=== PATIENT | female | born 1985 | race Caucasian/White ===

== ENCOUNTER 2018-06-07 16:22 | Emergency (ER) | payer OTHER ==
[2018-06-07 16:30] VITALS: BMI 25.7
[2018-06-07] MEDS ORDERED: ONDANSETRON 8 MG TABLET (FP) PO ONE (17:12)
[2018-06-07] MEDS ORDERED: MAG HYDROX/AL HYDROX/SIMETH 30 ML UNIT-DOSE CUP PO ONE (17:13)
[2018-06-07] MEDS ORDERED: MAG HYDROX/AL HYDROX/SIMETH 30 ML UNIT-DOSE CUP ONE (17:20)
[2018-06-07] MEDS ORDERED: ONDANSETRON 4 MG TABLET PO ONE ×2 (17:20→17:22)
[2018-06-07 17:35] LABS: URINE APPEARANCE CLEAR; URINE BILIRUBIN NEGATIVE (<2.0 mg/dL); URINE COLOR YELLOW; URINE GLUCOSE (UA) NEGATIVE (NEGATIVE); URINE KETONE NEGATIVE (NEGATIVE); URINE LEUK ESTERASE NEGATIVE (NEGATIVE); URINE NITRITE NEGATIVE (NEGATIVE); URINE PROTEIN NEGATIVE (NEGATIVE); URINE UROBILINOGEN NEGATIVE mg/dL (0.2-1.0)
[2018-06-07 17:41] LABS: HCG,QUALITATIVE URINE Negative
[2018-06-07] MEDS ORDERED: RANITIDINE HCL 150 MG TABLET (FP) ONE (17:49)
--- NOTE | 2018-06-07 18:03 | PDOC ---
History of Present Illness - General Chief Complaint: Cold Symptoms Stated Complaint: COLD SYMPTOMS Time Seen by Provider: 06/07/18 16:54 History Source: Patient Exam Limitations: No Limitations - History of Present Illness Initial Comments: 06/07/18 17:53 32 yo F w/ no sig PMHx comes in c/o 6 days of diffuse abdominal discomfort, with nausea, fever intermittently up to 103, dry cough with chest pain when she coughs, sore throat, nasal congestion, generalized malaise, (+)multiple episodes of NBNB vomiting yesterday and today, multiple episodes of NB diarrhea , no back pain, no burning/pain on urination, no vaginal symptoms. No known sick contacts, no recent travel. 06/07/18 19:30 Past History - Past Medical History Allergies/Adverse Reactions: Allergies Allergy/AdvReac Type Severity Reaction Status Date / Time No Known Allergies Allergy Verified 11/24/14 07:37 Home Medications: Ambulatory Orders Docusate Sodium [Colace -] 100 mg PO TID #21 capsule 11/29/14 oxyCODONE HCL [Roxicodone -] 5 mg PO Q6H PRN #14 tablet 11/29/14 CVA: No COPD: No CHF: No - Immunization History Immunization Up to Date: Yes - Suicide/Smoking/Psychosocial Hx Smoking History: Never smoked Have you smoked in the past 12 months: No Number of Cigarettes Smoked Daily: 0 Information on smoking cessation initiated: No Hx Alcohol Use: No Drug/Substance Use Hx: No Substance Use Type: None Review of Systems - Review of Systems Able to Perform ROS?: Yes Constitutional: Yes: Fever, Malaise. No: Chills, Night Sweats HEENTM: Yes: Throat Pain. No: Eye Pain, Recent change in vision Respiratory: Yes: Cough. No: Shortness of Breath Cardiac (ROS): Yes: Chest Pain. No: Palpitations, Chest Tightness ABD/GI: Yes: Diarrhea, Nausea, Vomiting, Abdominal cramping : No: Dysuria, Hematuria Musculoskeletal: No: Back Pain Integumentary: No: Rash Neurological: No: Headache, Numbness, Dizziness Psychiatric: Yes: Change in Appetite Endocrine: No: Unexplained Weight Loss *Physical Exam - Vital Signs Last Vital Signs Temp Pulse Resp BP Pulse Ox 99.9 F H 85 16 99/58 L 100 06/07/18 16:28 06/07/18 16:28 06/07/18 16:28 06/07/18 16:28 06/07/18 16:28 - Physical Exam General Appearance: Yes: Nourished. No: Apparent Distress HEENT: positive: KAVON, Normal Voice, Rhinorrhea, Other (nasal congestion, (+) clear effusion behind TMs bilaterally). negative: Pale Conjunctivae, Scleral Icterus (R), Scleral Icterus (L), Muffled/Hoarse voice, Tonsillar Erythema, TM Bulging, TM Dull Neck: positive: Supple, Lymphadenopathy (R) (mild), Lymphadenopathy (L) (mild). negative: Decreased range of motion, Tender midline Respiratory/Chest: positive: Lungs Clear, Normal Breath Sounds. negative: Respiratory Distress, Accessory Muscle Use Cardiovascular: positive: Regular Rhythm, Regular Rate Gastrointestinal/Abdominal: positive: Normal Bowel Sounds, Tender (DIffuse non focal tenderness mostly in epigastric area, (-)McBurney's tenderness, (-) Rosving sign, (-)psoas sign, (-)pelayo's sign), Soft Musculoskeletal: positive: Normal Inspection. negative: CVA Tenderness, Decreased Range of Motion Extremity: positive: Normal Capillary Refill, Normal Inspection, Normal Range of Motion. negative: Tender, Pedal Edema Integumentary: positive: Normal Color, Dry. negative: Jaundice, Rash Neurologic: positive: Fully Oriented, Alert, Normal Mood/Affect Moderate Sedation - Procedure Monitoring Vital Signs: Procedure Monitoring Vital Signs Temperature 99.9 F H 06/07/18 16:28 Pulse Rate 85 06/07/18 16:28 Respiratory Rate 16 06/07/18 16:28 Blood Pressure 99/58 L 06/07/18 16:28 O2 Sat by Pulse Oximetry (%) 100 06/07/18 16:28 ED Treatment Course - ADDITIONAL ORDERS Additional order review: Laboratory Results 06/07/18 17:06 Urine Color Yellow Urine Appearance Clear Urine pH 6.0 Ur Specific [place] 1.021 Urine Protein Negative Urine Glucose (UA) Negative Urine Ketones Negative Urine Blood Negative Urine Nitrite Negative Urine Bilirubin Negative Urine Urobilinogen Negative Ur Leukocyte Esterase Negative Urine HCG, Qual Negative - Medications Given in the ED: ED Medications Discontinued Medications Generic Name Dose Route Start Last Admin Trade Name Freq PRN Reason Stop Dose Admin Al Hydroxide/Mg Hydroxide 30 ml 06/07/18 17:13 06/07/18 17:24 Mylanta Oral Suspension - PO 06/07/18 17:14 30 ml ONCE ONE Administration Ondansetron HCl 8 mg 06/07/18 17:12 06/07/18 17:24 Zofran - PO 06/07/18 17:13 8 mg ONCE ONE Administration Medical Decision Making - Medical Decision Making 06/07/18 17:34 32 yo F w/ flu like symptoms. WIll test for Flu only for diagnostic purposes because pt has had symptoms for 6 days. Marvin also check for Strep and will do a CXR due to CP associated with cough and will reasess. WIll give zofran, zantac, maalox and reassess 06/07/18 19:35 Pt not better after zantac, zofran, maalox, she vomited again in the bathroom. WIll line and lab, give IV fluids and reassess. Change of shift, care of patient signed over to RAS Barriga who will reassess patient, order labs and decide on dispo plan *DC/Admit/Observation/Transfer Diagnosis at time of Disposition: Flu-like symptoms Abdominal pain Qualifiers: Abdominal location: generalized Qualified Code(s): R10.84 - Generalized abdominal pain - Referrals Referrals: Jc Ledbetter MD [Primary Care Provider] - - Patient Instructions - Post Discharge Activity
[2018-06-07] MEDS ORDERED: SODIUM CHLORIDE 1,000 ML IV STA (19:10)
[2018-06-07] MEDS ORDERED: ONDANSETRON 4 MG/2 ML VIAL IVPUSH ONE (19:10)
--- NOTE | 2018-06-07 20:19 | PDOC ---
*Physical Exam - Vital Signs Last Vital Signs Temp Pulse Resp BP Pulse Ox 99.9 F H 85 16 99/58 L 100 06/07/18 16:28 06/07/18 16:28 06/07/18 16:28 06/07/18 16:28 06/07/18 16:28 ED Treatment Course - LABORATORY CBC & Chemistry Diagram: 06/07/18 21:10 06/07/18 21:10 - ADDITIONAL ORDERS Additional order review: Laboratory Results 06/07/18 17:06 Urine Color Yellow Urine Appearance Clear Urine pH 6.0 Ur Specific [place] 1.021 Urine Protein Negative Urine Glucose (UA) Negative Urine Ketones Negative Urine Blood Negative Urine Nitrite Negative Urine Bilirubin Negative Urine Urobilinogen Negative Ur Leukocyte Esterase Negative Urine HCG, Qual Negative - Medications Given in the ED: ED Medications Discontinued Medications Generic Name Dose Route Start Last Admin Trade Name Indra PRN Reason Stop Dose Admin Al Hydroxide/Mg Hydroxide 30 ml 06/07/18 17:13 06/07/18 17:24 Mylanta Oral Suspension - PO 06/07/18 17:14 30 ml ONCE ONE Administration Ondansetron HCl 8 mg 06/07/18 17:12 06/07/18 17:24 Zofran - PO 06/07/18 17:13 8 mg ONCE ONE Administration *DC/Admit/Observation/Transfer Diagnosis at time of Disposition: Flu-like symptoms Abdominal pain Qualifiers: Abdominal location: generalized Qualified Code(s): R10.84 - Generalized abdominal pain - Discharge Dispostion Disposition: HOME Condition at time of disposition: Stable Decision to Admit order: No - Referrals Referrals: Jc Ledbetter MD [Primary Care Provider] - - Patient Instructions Printed Discharge Instructions: DI for Viral Upper Respiratory Infection -- Adult Additional Instructions: You have flu like symptoms. Your ultrasound today shows no acute problems Please take zofran every 8 hours as needed for nausea and vomiting Drink plenty of fluids and eat a bland diet Take motrin as needed for pain or fever every 6 hours. Follow up with your primary care doctor in 24-72 hours Return to the ED for worsening abdominal pain, fever, or if you have any new or worsening symptoms - Post Discharge Activity Forms/Work/School Notes: Back to Work
[2018-06-07] MEDS ORDERED: ONDANSETRON 4 MG/2 ML VIAL ONE (21:26)
[2018-06-07 21:31] LABS: BASO % 0.3 % (0-2.0); HEMATOCRIT 33.8 % (32.4-45.2); HEMOGLOBIN 11.4 GM/dL (10.7-15.3); LYMPH % 17.1 % (8-40); MCH 32.8 pg (25.7-33.7); MCHC 33.8 g/dl (32.0-36.0); MEAN CELL VOLUME 97.1 fl (80-96); MEAN PLT VOLUME 8.1 fl (7.5-11.1); MONO % 7.7 % (3.8-10.2); NEUT % 72.9 % (42.8-82.8); PLATELET COUNT 214 K/MM3 (134-434); RBC 3.48 M/mm3 (3.60-5.2); WHITE BLOOD COUNT 11.7 K/mm3 (4.0-10.0)
[2018-06-07 21:53] LABS: ALBUMIN 3.3 g/dl (3.4-5.0); ALK PHOS 83 U/L (45-117); ANION GAP 6 MMOL/L (8-16); BILIRUBIN,TOTAL 0.6 mg/dL (0.2-1); BLOOD UREA NITROGEN 7 mg/dL (7-18); CALCIUM 8.3 mg/dL (8.5-10.1); CHLORIDE 108 mmol/L (98-107); CO2 25 mmol/L (21-32); CREATININE 0.6 mg/dL (0.55-1.3); GLUCOSE,RANDOM 80 mg/dL (74-106); LIPASE 152 U/L (73-393); POTASSIUM 4.2 mmol/L (3.5-5.1); SGOT/AST 39 U/L (15-37); SGPT/ALT 96 U/L (13-61); SODIUM 138 mmol/L (136-145); TOT PROT 6.9 g/dl (6.4-8.2)
[2018-06-08 00:58] VITALS: BP 112/78; PULSE 82; TEMP 98.7
== END 2018-06-08 00:58 | disposition home or self-care (01) ==
LOC: JER 16:22 → JERFT 16:22 → JER 06-08 00:58
DX: J11.1 Influenza due to unidentified influenza virus with other respiratory manifestations (principal)
CPT/HCPCS: 36415; 71046-TC-FY; 76705-TC; 80053; 81003; 83690; 84703; 85025; 87070; 87804; 87880; 99282-25; J7030

== ENCOUNTER 2019-08-10 10:34 | Emergency (ER) | payer OTHER ==
[2019-08-10 10:51] VITALS: TEMP 97.8; BMI 25.7
[2019-08-10] MEDS ORDERED: ONDANSETRON 4 MG/2 ML VIAL IVPUSH ONE (11:10)
[2019-08-10] MEDS ORDERED: ACETAMINOPHEN 1000 MG/100 ML VIAL (NON FORMULARY) IVPB ONE (11:10)
[2019-08-10] MEDS ORDERED: ONDANSETRON 4 MG/2 ML VIAL ONE (11:16)
[2019-08-10] MEDS ORDERED: ACETAMINOPHEN INJECTION 100 ML IVPB ONE (11:16)
--- NOTE | 2019-08-10 11:18 | PDOC ---
History of Present Illness - General Chief Complaint: Pain Stated Complaint: CHEST PAIN Time Seen by Provider: 08/10/19 10:59 - History of Present Illness Initial Comments: 08/10/19 11:15 33 yo F PMH cholelithiasis s/p cholecystectomy, kidney stones (not requiring intervention), (all full-term vaginal deliveries), presenting with RUQ pain. States that it began last night, associated with nausea and two episodes of vomiting. Further complains of chest pressure "like an elephant is sitting on my chest" intermittently for the past week. Notes that the RUQ pain feels similar in quality to her past cholelithiasis. Endorses nausea/vomiting, chest pain, and RUQ abdominal pain. Denies SOB, urinary changes. LMP July 11. Past History - Past Medical History Allergies/Adverse Reactions: Allergies Allergy/AdvReac Type Severity Reaction Status Date / Time No Known Allergies Allergy Verified 08/10/19 10:42 Home Medications: Ambulatory Orders NK [No Known Home Medication] 08/10/19 CVA: No COPD: No CHF: No - Immunization History Immunization Up to Date: Yes - Psycho Social/Smoking Cessation Hx Smoking History: Current some day smoker Have you smoked in the past 12 months: No Number of Cigarettes Smoked Daily: 0 Information on smoking cessation initiated: No Hx Alcohol Use: No Drug/Substance Use Hx: Yes (marijuana) Substance Use Type: None Review of Systems - Review of Systems Comments:: 08/10/19 11:21 GENERAL/CONSTITUTIONAL: denies fever, chills, diaphoresis, generalized weakness, malaise, loss of appetite, weight change HEAD, EYES, EARS, NOSE AND THROAT: denies rhinorrhea, nasal congestion, throat pain, throat swelling, difficulty swallowing, mouth swelling, ear pain, eye pain, visual changes NEUROLOGIC: denies headache, focal weakness or paresthesias, dizziness, unsteady gait, seizure, mental status changes, bladder or bowel incontinence CARDIOVASCULAR: endorses chest pain. Denies syncope, palpitations, irregular heart rate, lightheadedness, peripheral edema RESPIRATORY: denies cough, shortness of breath, dyspnea with exertion, orthopnea, wheezing, stridor, hemoptysis GASTROINTESTINAL: endorses abdominal pain, nausea, and vomiting. Denies abdominal distension, diarrhea, constipation, melena, hematochezia GENITOURINARY: denies dysuria, frequency, urgency, hesitancy, hematuria, flank pain, genital pain MUSCULOSKELETAL: denies myalgia, arthralgia, joint swelling, back pain, neck pain SKIN: denies rash, itching, pallor HEMATOLOGIC/IMMUNOLOGIC: denies easy bleeding, easy bruising, lymphadenopathy, frequent infections ENDOCRINE: denies unexplained weight gain, unexplained weight loss, heat intolerance, cold intolerance PSYCHIATRIC: denies anxiety, depression, suicidal or homicidal ideation, hallucinations *Physical Exam - Vital Signs Last Vital Signs Temp Pulse Resp BP Pulse Ox 97.8 F 56 L 18 114/62 100 08/10/19 10:42 08/10/19 10:42 08/10/19 10:42 08/10/19 10:42 08/10/19 10:42 - Physical Exam 08/10/19 11:32 Gen: well-developed, well-nourished, NAD Neuro: AAOX4, CN II-XII intact, FTN intact, EOMI, PERRLA, 5/5 strength, SILT HEENT: atraumatic, normocephalic Neck: trachea midline, supple CV: regular rate, regular rhythm, no murmurs, rubs, or gallops Pulm: CTA b/l, no wheezing Abd: soft, non-distended, RLQ and RUQ tenderness, positive Goss's MSK: full ROM, intact pulses Extr: no edema, no deformities Skin: warm, dry ED Treatment Course - LABORATORY CBC & Chemistry Diagram: 08/10/19 11:20 08/10/19 11:20 - RADIOLOGY Radiology Studies Ordered: Category Date Time Status CXRPORT [CHEST X-RAY PORTABLE*] [RAD] Stat Radiology 08/10/19 11:10 Ordered Medical Decision Making - Medical Decision Making 08/10/19 11:18 Concern for pancreatitis v appendicitis v choledocolithiasis v kidney stone. Low suspicion for PE, PERC negative. - CBC, CMP - lipase - EKG, CXR, cardiac profile - UA/UC/urine preg - Ofirmev - Zofran 08/10/19 12:04 No UTI, CBC unremarkable. 08/10/19 13:51 CT with patent biliary stent, nephrolithiasis without obstructive uropathy, no acute pathology. Patient feeling better, and now states that she has been eating a lot of fried food. After getting explanation that she no longer has the enzymes to properly digest these fatty foods, she expresses understanding. Pain controlled. Will dc for further outpatient management. Discharge - Discharge Information Problems reviewed: Yes Clinical Impression/Diagnosis: Right upper quadrant pain Condition: Improved Disposition: HOME - Follow up/Referral Referrals: Jc Ledbetter MD [Primary Care Provider] - - Patient Discharge Instructions Additional Instructions: You were seen with abdominal pain. Your labs and imaging did not show any acute pathology. This may be due to your diet of fried food without a gallbladder. Please refrain from these types of foods. Follow up with your primary care doctor within one week. Return to the ED if you develop new or worsening symptoms. - Post Discharge Activity Work/Back to School Note: Back to Work
[2019-08-10 11:40] LABS: BASO % 0.2 % (0-2.0); EOS % 5.3 % (0-4.5); HEMATOCRIT 38.5 % (32.4-45.2); HEMOGLOBIN 12.8 GM/dL (10.7-15.3); LYMPH % 41.4 % (8-40); MCH 32.5 pg (25.7-33.7); MCHC 33.3 g/dl (32.0-36.0); MEAN CELL VOLUME 97.6 fl (80-96); MEAN PLT VOLUME 8.7 fl (7.5-11.1); MONO % 6.3 % (3.8-10.2); NEUT % 46.8 % (42.8-82.8); PLATELET COUNT 243 K/MM3 (134-434); RBC 3.95 M/mm3 (3.60-5.2); RDW 13.2 % (11.6-15.6)
[2019-08-10 11:43] LABS: PH,URINE 5.5 (5.0-8.0); URINE APPEARANCE CLEAR; URINE BILIRUBIN NEGATIVE (NEGATIVE); URINE COLOR YELLOW; URINE GLUCOSE (UA) NEGATIVE (NEGATIVE); URINE KETONE NEGATIVE (NEGATIVE); URINE LEUK ESTERASE NEGATIVE (NEGATIVE); URINE NITRITE NEGATIVE (NEGATIVE); URINE PROTEIN NEGATIVE (NEGATIVE)
[2019-08-10 11:45] LABS: HCG,QUALITATIVE URINE Negative
[2019-08-10 11:48] LABS: INR 1.04 (0.83-1.09); PROTHROMBIN TIME (PATIENT) 12.3 SEC (9.7-13.0)
[2019-08-10 11:49] VITALS: BP 111/69; PULSE 60
[2019-08-10 11:50] LABS: ACTIVATED PTT 32.7 SECONDS (25.2-36.5)
[2019-08-10 12:19] LABS: ALBUMIN 3.7 g/dl (3.4-5.0); ALK PHOS 66 U/L (45-117); ANION GAP 5 MMOL/L (8-16); BILIRUBIN,TOTAL 0.4 mg/dL (0.2-1); BLOOD UREA NITROGEN 5.9 mg/dL (7-18); CALCIUM 8.2 mg/dL (8.5-10.1); CHLORIDE 110 mmol/L (98-107); CO2 26 mmol/L (21-32); CREATININE 0.6 mg/dL (0.55-1.3); GLUCOSE,RANDOM 91 mg/dL (74-106); LIPASE 102 U/L (73-393); POTASSIUM 4.2 mmol/L (3.5-5.1); SGOT/AST 18 U/L (15-37); SGPT/ALT 25 U/L (13-61); SODIUM 141 mmol/L (136-145); TOT PROT 7.3 g/dl (6.4-8.2)
[2019-08-10] MEDS ORDERED: KETOROLAC TROMETHAMINE 30 MG/1 ML VIAL IVPUSH ONE (13:27)
[2019-08-10] MEDS ORDERED: KETOROLAC TROMETHAMINE 15 MG/ML VIAL ONE (13:40)
--- NOTE | 2019-08-10 13:48 | PDOC ---
Attending Attestation - Resident Resident Name: Brianna Salcedo - ED Attending Attestation I have performed the following: I have examined & evaluated the patient, The case was reviewed & discussed with the resident, I agree w/resident's findings & plan, Exceptions are as noted - HPI HPI: 33 yo F history cholecystectomy, kidney stones presenting with RUQ/R flank pain radiating to the RLQ. Denies appetite changes. She states the pain was abrupt onset, colicky, sharp. +Nausea with two episodes of NBNB vomiting. LMP 2. - Physicial Exam PE: GENERAL: Awake, alert, and fully oriented, in no acute distress HEAD: No signs of trauma EYES: PERRLA, EOMI, sclera anicteric, conjunctiva clear ENT: Auricles normal inspection, hearing grossly normal, nares patent, oropharynx clear without exudates. Moist mucosa NECK: Normal ROM, supple, no lymphadenopathy, JVD, or masses LUNGS: Breath sounds equal, clear to auscultation bilaterally. No wheezes, and no crackles HEART: Regular rate and rhythm, normal S1 and S2, no murmurs, rubs or gallops ABDOMEN: Soft, nontender, normoactive bowel sounds. No guarding, no rebound. No masses EXTREMITIES: Normal range of motion, no edema. No clubbing or cyanosis. No cords, erythema, or tenderness NEUROLOGICAL: Cranial nerves II through XII grossly intact. Normal speech, normal gait. Motor and sensation intact SKIN: Warm, dry, normal turgor, no rashes or lesions noted. - Medical Decision Making Symptoms suspicious for kidney stone. CT a/p no acute findings. Stable for DC home. Discharge - Discharge Information Problems reviewed: Yes Clinical Impression/Diagnosis: Right upper quadrant pain Condition: Improved Disposition: HOME - Follow up/Referral Referrals: Jc Ledbetter MD [Primary Care Provider] - - Patient Discharge Instructions Additional Instructions: You were seen with abdominal pain. Your labs and imaging did not show any acute pathology. This may be due to your diet of fried food without a gallbladder. Please refrain from these types of foods. Follow up with your primary care doctor within one week. Return to the ED if you develop new or worsening symptoms. - Post Discharge Activity Work/Back to School Note: Back to Work
--- NOTE | 2019-08-10 16:06 | EKG ---
Test Reason : Blood Pressure : / mmHG Vent. Rate : 061 BPM Atrial Rate : 061 BPM P-R Int : 120 ms QRS Dur : 090 ms QT Int : 414 ms P-R-T Axes : 031 055 026 degrees QTc Int : 416 ms NORMAL SINUS RHYTHM WITH SINUS ARRHYTHMIA NORMAL ECG WHEN COMPARED WITH ECG OF 24-NOV-2014 08:33, NO SIGNIFICANT CHANGE WAS FOUND Confirmed by BLAIR BARROW MD ([id number]) on 08/10/2019 4:06:07 PM Referred By: Confirmed By:BLAIR BARROW MD
== END 2019-08-10 14:42 | disposition home or self-care (01) ==
LOC: JER 10:34
PROC: 3E033NZ Introduction of Analgesics, Hypnotics, Sedatives into Peripheral Vein, Percutaneous Approach (ICD-10-PCS; principal; 2019-08-10)
PROC: 3E0333Z Introduction of Anti-inflammatory into Peripheral Vein, Percutaneous Approach (ICD-10-PCS; 2019-08-10)
PROC: 3E033GC Introduction of Other Therapeutic Substance into Peripheral Vein, Percutaneous Approach (ICD-10-PCS; 2019-08-10)
DX: R10.11 Right upper quadrant pain (principal); Z87.442 Personal history of urinary calculi; Z90.49 Acquired absence of other specified parts of digestive tract
CPT/HCPCS: 36415; 71045-TC-FY; 74176-TC; 80053; 81003; 82550; 83690; 84484; 84703; 85025; 85610; 85730; 87086; 93005; 93010; 96374; 96375; 99285-25; J0131

== ENCOUNTER 2020-02-22 10:03 | Emergency (ER) | payer OTHER ==
[2020-02-22 10:10] VITALS: BP 126/70; PULSE 89; TEMP 98.5; BMI 25.7
[2020-02-22] MEDS ORDERED: guaiFENesin/D-METHORPHAN HB 10 ML UNIT-DOSE CUPS PO ONE (10:18)
[2020-02-22] MEDS ORDERED: IBUPROFEN 600 MG TABLET (FP) PO ONE ×2 (10:18→10:21)
--- NOTE | 2020-02-22 10:18 | PDOC ---
History of Present Illness - General Chief Complaint: Cold Symptoms Stated Complaint: VOMITING Time Seen by Provider: 02/22/20 10:14 History Source: Patient Exam Limitations: No Limitations Past History - Travel History Traveled outside of the country in the last 30 days: No Close contact w/someone who was outside of country & ill: No - Medical History Allergies/Adverse Reactions: Allergies Allergy/AdvReac Type Severity Reaction Status Date / Time No Known Allergies Allergy Verified 02/22/20 10:07 Home Medications: Ambulatory Orders Benzonatate [Tessalon Pearls -] 100 mg PO TID #21 capsule 02/22/20 Pseudoephedrine HCl [Pseudoephedrine ER] 120 mg PO BID #14 tablet.er 02/22/20 CVA: No COPD: No CHF: No - Reproductive History Is Patient Now?: No - Immunization History Immunization Up to Date: Yes - Psycho-Social/Smoking History Smoking History: Current every day smoker Have you smoked in the past 12 months: No Number of Cigarettes Smoked Daily: 0 Information on smoking cessation initiated: No - Substance Abuse Hx (Audit-C & DAST Scrn) How often the patient has a drink containing alcohol: Never Score: In Men: 4 or > Positive; In Women: 3 or > Positive: 0 Screen Result (Pos requires Nsg. Audit-10AR): Negative In the last yr the pt used illegal drug/Rx for NonMed reason: No Score: Yes response is considered Positive: 0 Screen Result (Positive result requires Nsg. DAST-10): Negative Review of Systems - Review of Systems Able to Perform ROS?: Yes Comments:: 02/22/20 10:15 CONSTITUTIONAL: Absent: Fever, chills, body aches Absent: diaphoresis, generalized weakness, malaise, loss of appetite HEENT: Present: rhinorrhea, nasal congestion, throat pain. Absent: difficulty swallowing, mouth swelling, ear pain, eye pain, visual Changes CARDIOVASCULAR: Absent: chest pain, loss of consciousness, palpitations, irregular heart rate, peripheral edema RESPIRATORY: Present: Cough Absent: shortness of breath, dyspnea with exertion, orthopnea, wheezing, stridor, hemoptysis GASTROINTESTINAL: Absent: abdominal pain, abdominal distension, nausea, vomiting, diarrhea, constipation, melena, hematochezia SKIN: Absent: rash, itching, pallor NEUROLOGIC: Present: headache Absent: focal weakness or paresthesias, dizziness, unsteady gait, seizure, mental status changes, bladder or bowel incontinence Is the patient limited Tajik proficient: No *Physical Exam - Vital Signs Last Vital Signs Temp Pulse Resp BP Pulse Ox 98.5 F 89 18 126/70 100 02/22/20 10:07 02/22/20 10:07 02/22/20 10:07 02/22/20 10:07 02/22/20 10:07 - Physical Exam 02/22/20 10:16 GENERAL: The patient is awake, alert, and fully oriented, in no acute distress. HEAD: Normal with no signs of trauma. EYES: Pupils equal, round and reactive to light, extraocular movements intact, sclera anicteric, conjunctiva clear. HEENT: No nasal congestion or rhinorrhea. No sinus Tenderness. Mucous membranes are moist. No tonsillar erythema, exudate or edema. Uvula is midline. No TM bulging, dullness or erythema. LUNGS: CTAB, (-) w/r/r. No respiratory distress EXTREMITIES: Normal range of motion, no edema. NEUROLOGICAL: Normal speech, normal gait. PSYCH: Normal mood, normal affect. SKIN: Warm, Dry, normal turgor, no rashes or lesions noted. Medical Decision Making - Medical Decision Making 02/22/20 10:17 Patient is a 34-year-old female no past medical history presents the ER with 1 day of cold symptoms. She states that she woke up yesterday with a cough with y ellow sputum. She states that when she coughs she has some chest pain. She also admits to a discomfort in her throat. She was told to come to the ER by her doctor for evaluation. She denies chest pain at rest, difficulty breathing, shortness of breath, earache, nausea, vomiting and diarrhea. A/P: URI On exam lungs are clear to auscultation bilateral without wheezes rales or rhonchi. Throat is without erythema exudate or edema. Upper respiratory-like symptoms. Afebrile no recent travel, no known cold exposure. Will order EKG chest x-ray and COVID swab Recommend symptomatic relief Reevaluate 02/22/20 11:19 CXR normal, no acute pathology EKG: rate 82 bpm, NSR, normal intervals and axis. No acute ST-T wave changes Pt feeling better after medication DC home with supportive therapy and isolation until covid results come back Pt is in agreement with dc planning. Understands all dc instructions and all questions were answered. Return precautions given. Pt agrees to f/u with her PCP. Discharge - Discharge Information Problems reviewed: Yes Clinical Impression/Diagnosis: URI (upper respiratory infection) Qualifiers: URI type: unspecified viral URI Qualified Code(s): J06.9 - Acute upper respiratory infection, unspecified Condition: Stable Disposition: HOME - Admission No - Follow up/Referral Referrals: [facility] [place] [facility] [place] [Provider Group] - Patient Discharge Instructions Patient Printed Discharge Instructions: DI for Viral Upper Respiratory Infection -- Adult, [facility] COVID-19 Isolation Protocol Additional Instructions: You were seen for your cough today. Take the Tessalon perles every 8 hours as needed for cough You may take pseudafed twice a day for decongestion Please keep yourself isolated until you find out the results of your COVID test. Drink plenty of fluids and get plenty of rest Follow up with your PCP this week Return to the ER for any new or worsening symptoms. - Post Discharge Activity Work/Back to School Note: Back to Work
[2020-02-22] MEDS ORDERED: guaiFENesin/D-METHORPHAN HB 10 ML UNIT-DOSE CUPS ONE (10:21)
--- NOTE | 2020-02-23 10:15 | EKG ---
Test Reason : Blood Pressure : / mmHG Vent. Rate : 082 BPM Atrial Rate : 082 BPM P-R Int : 136 ms QRS Dur : 090 ms QT Int : 366 ms P-R-T Axes : 057 055 015 degrees QTc Int : 427 ms NORMAL SINUS RHYTHM NORMAL ECG WHEN COMPARED WITH ECG OF 10-AUG-2019 10:38, NO SIGNIFICANT CHANGE WAS FOUND Confirmed by MD Hobson Edward ([id number]) on 02/23/2020 10:15:10 AM Referred By: Confirmed By:Sunny Hobson MD
== END 2020-02-22 11:26 | disposition home or self-care (01) ==
LOC: JERFT 10:03 → JER 10:03 → JERFT 11:26
DX: J06.9 Acute upper respiratory infection, unspecified (principal)
CPT/HCPCS: 71046-TC-FY; 93005; 93010; 99284-25; U0003

== ENCOUNTER 2022-05-29 12:07 | Inpatient (IN) | payer OTHER ==
[2022-05-29] MEDS ORDERED: ONDANSETRON 4 MG/2 ML VIAL IVPUSH ONE (13:39)
[2022-05-29] MEDS ORDERED: ACETAMINOPHEN 500 MG TABLET (FP) PO ONE (13:39)
[2022-05-29] MEDS ORDERED: ACETAMINOPHEN 325 MG TABLET (FP) ONE (13:55)
[2022-05-29] MEDS ORDERED: ONDANSETRON 4 MG/2 ML VIAL ONE (13:56)
[2022-05-29 14:31] LABS: BASO % 0.5 % (0-2.0); EOS % 3.2 % (0-4.5); HEMATOCRIT 42.1 % (32.4-45.2); HEMOGLOBIN 13.7 GM/dL (10.7-15.3); MCHC 32.6 g/dl (32.0-36.0); MEAN PLT VOLUME 8.6 fl (7.5-11.1); MONO % 7.3 % (3.8-10.2); PLATELET COUNT 270 10^3/uL (134-434); RBC 4.29 M/mm3 (3.60-5.2); RDW 12.9 % (11.6-15.6); URINE APPEARANCE CLEAR; URINE BILIRUBIN NEGATIVE (NEGATIVE); URINE COLOR YELLOW; URINE GLUCOSE (UA) NEGATIVE (NEGATIVE); URINE KETONE NEGATIVE (NEGATIVE); URINE LEUK ESTERASE NEGATIVE (NEGATIVE); URINE NITRITE NEGATIVE (NEGATIVE); URINE PROTEIN NEGATIVE (NEGATIVE); URINE UROBILINOGEN 0.2 mg/dL (0.2-1.0); WHITE BLOOD COUNT 8.2 K/mm3 (4.0-10.0)
[2022-05-29 14:52] LABS: ALBUMIN 3.7 g/dl (3.4-5.0); BLOOD UREA NITROGEN 6.2 mg/dL (7-18); CALCIUM 9.3 mg/dL (8.5-10.1)
[2022-05-29 14:55] LABS: CREATININE 0.7 mg/dL (0.55-1.3)
[2022-05-29 14:57] LABS: BILIRUBIN,TOTAL 0.3 mg/dL (0.2-1); TOT PROT 7.6 g/dl (6.4-8.2)
[2022-05-29] MEDS ORDERED: MAG HYDROX/AL HYDROX/SIMETH 30 ML UNIT-DOSE CUP PO ONE (18:04)
[2022-05-29] MEDS ORDERED: FAMOTIDINE 20 MG/50 ML IVPB 20 MG/50 ML MG IVPB ONE ×2 (18:04→18:11)
[2022-05-29] MEDS ORDERED: MAG HYDROX/AL HYDROX/SIMETH 30 ML UNIT-DOSE CUP ONE (18:10)
[2022-05-29] MEDS ORDERED: SODIUM CHLORIDE 1,000 ML IV SCH (21:00)
[2022-05-30 08:20] LABS: HEMATOCRIT 38.9 % (32.4-45.2); HEMOGLOBIN 12.7 GM/dL (10.7-15.3); MCH 31.7 pg (25.7-33.7); MCHC 32.6 g/dl (32.0-36.0); MEAN CELL VOLUME 97.3 fl (80-96); MEAN PLT VOLUME 8.8 fl (7.5-11.1); PLATELET COUNT 241 10^3/uL (134-434); RBC 3.99 M/mm3 (3.60-5.2); RDW 12.9 % (11.6-15.6); WHITE BLOOD COUNT 6.5 K/mm3 (4.0-10.0)
[2022-05-30 08:30] LABS: ALBUMIN 3.4 g/dl (3.4-5.0); BLOOD UREA NITROGEN 4.8 mg/dL (7-18)
[2022-05-30 08:33] LABS: BILIRUBIN,TOTAL 0.5 mg/dL (0.2-1); CREATININE 0.6 mg/dL (0.55-1.3); TOT PROT 6.7 g/dl (6.4-8.2)
[2022-05-30 08:40] LABS: COCAINE, UR NEGATIVE (NEGATIVE); PHENCYCLIDINE,URINE NEGATIVE (NEGATIVE); URINE BARBITURATES NEGATIVE (NEGATIVE)
[2022-05-30 08:42] LABS: METHADONE, UR NEGATIVE (NEGATIVE); OPIATES, URI NEGATIVE (NEGATIVE); URINE AMPHETAMINES NEGATIVE (NEGATIVE); URINE BENZODIAZEPINES NEGATIVE (NEGATIVE)
[2022-05-30] MEDS: ENOXAPARIN NA (PORCINE) 40 MG/0.4 ML DISP.SYRIN SQ SCH (12:00)
[2022-05-30 13:26] LABS: COCAINE, UR NEGATIVE (NEGATIVE); OPIATES, URI NEGATIVE (NEGATIVE)
[2022-05-30 13:27] LABS: METHADONE, UR NEGATIVE (NEGATIVE); PHENCYCLIDINE,URINE NEGATIVE (NEGATIVE); URINE BARBITURATES NEGATIVE (NEGATIVE)
[2022-05-30 13:33] LABS: URINE AMPHETAMINES NEGATIVE (NEGATIVE); URINE BENZODIAZEPINES NEGATIVE (NEGATIVE)
[2022-05-30] MEDS ORDERED: ACETAMINOPHEN 1000 MG/100 ML BAG IVPB ONE (23:07)
[2022-05-31] MEDS: MELATONIN 5 MG TABLETS PO SCH ×2 (00:46→22:07)
[2022-05-31 08:50] LABS: BASO % 0.4 % (0-2.0); EOS % 1.2 % (0-4.5); HEMATOCRIT 41.5 % (32.4-45.2); HEMOGLOBIN 13.7 GM/dL (10.7-15.3); LYMPH % 23.2 % (8-40); MCH 32.3 pg (25.7-33.7); MEAN PLT VOLUME 8.3 fl (7.5-11.1); MONO % 6.1 % (3.8-10.2); NEUT % 69.1 % (42.8-82.8); PLATELET COUNT 253 10^3/uL (134-434); RBC 4.23 M/mm3 (3.60-5.2); RDW 12.8 % (11.6-15.6); WHITE BLOOD COUNT 7.7 K/mm3 (4.0-10.0)
[2022-05-31 08:51] LABS: INR 1.09 (0.83-1.09); PROTHROMBIN TIME (PATIENT) 12.5 SEC (9.7-13.0)
[2022-05-31] MEDS ORDERED: ACETAMINOPHEN 1000 MG/100 ML BAG IVPB ONE (09:16)
[2022-05-31] MEDS ORDERED: ACETAMINOPHEN 1000 MG/100 ML BAG IVPB PRN (09:31)
[2022-05-31] MEDS: ENOXAPARIN NA (PORCINE) 40 MG/0.4 ML DISP.SYRIN SQ SCH (09:37)
[2022-05-31 10:23] LABS: CALCIUM 9.6 mg/dL (8.5-10.1)
[2022-05-31 10:24] LABS: ALBUMIN 3.7 g/dl (3.4-5.0); BILIRUBIN,DIRECT 0.1 mg/dL (0.0-0.2); BLOOD UREA NITROGEN 9.2 mg/dL (7-18)
[2022-05-31 10:27] LABS: BILIRUBIN,TOTAL 0.5 mg/dL (0.2-1); TOT PROT 7.6 g/dl (6.4-8.2)
[2022-05-31 10:29] LABS: CREATININE 0.6 mg/dL (0.55-1.3)
[2022-05-31 14:34] VITALS: BMI 24.9
[2022-05-31] MEDS: oxyCODONE HCL 5 MG TABLET PO PRN (22:15)
[2022-06-01 10:08] LABS: HEMATOCRIT 44.1 % (32.4-45.2); HEMOGLOBIN 14.7 GM/dL (10.7-15.3); MCH 32.3 pg (25.7-33.7); MCHC 33.4 g/dl (32.0-36.0); MEAN CELL VOLUME 96.7 fl (80-96); MEAN PLT VOLUME 8.7 fl (7.5-11.1); PLATELET COUNT 282 10^3/uL (134-434); RBC 4.56 M/mm3 (3.60-5.2); RDW 12.7 % (11.6-15.6); WHITE BLOOD COUNT 9.4 K/mm3 (4.0-10.0)
[2022-06-01 10:31] LABS: CALCIUM 9.5 mg/dL (8.5-10.1)
[2022-06-01 10:32] LABS: BLOOD UREA NITROGEN 9.1 mg/dL (7-18)
[2022-06-01 10:35] LABS: CREATININE 0.7 mg/dL (0.55-1.3)
[2022-06-01] MEDS ORDERED: INDOMETHACIN 50 MG RECTAL SUPPOSITORY PR ONE (12:15)
[2022-06-01] MEDS ORDERED: MAG HYDROX/AL HYDROX/SIMETH 30 ML UNIT-DOSE CUP PO PRN (12:49)
[2022-06-01] MEDS: MELATONIN 5 MG TABLETS PO SCH (21:40)
[2022-06-01] MEDS: oxyCODONE HCL 5 MG TABLET PO PRN (21:40)
[2022-06-02] MEDS: MELATONIN 5 MG TABLETS PO SCH (21:49)
[2022-06-03] MEDS ORDERED: ENOXAPARIN NA (PORCINE) 40 MG/0.4 ML DISP.SYRIN SQ SCH (10:00)
[2022-06-03] MEDS: MELATONIN 5 MG TABLETS PO SCH (21:31)
[2022-06-04] MEDS: MELATONIN 5 MG TABLETS PO SCH (21:11)
[2022-06-05] MEDS ORDERED: INDOMETHACIN 50 MG RECTAL SUPPOSITORY PR ONE (08:08)
[2022-06-05] MEDS ORDERED: MIDAZOLAM HCL 2 MG/2 ML SINGLE DOSE VIAL ONE (11:56)
[2022-06-05] MEDS ORDERED: FENTANYL CITRATE/PF 50 MCG/ML VIAL ONE (11:56)
[2022-06-05] MEDS ORDERED: ceFAZolin SODIUM 1 GM VIAL ONE ×2 (12:21)
[2022-06-05] MEDS ORDERED: IOHEXOL 300 MG/ML INFUS..BTL IV ONE (12:32)
[2022-06-05] MEDS ORDERED: LACTATED RINGERS SOLUTION 1,000 ML/1,000 ML INFUS.BAG IV SCH ×2 (13:30→22:00)
[2022-06-05 14:05] VITALS: RESP 18
[2022-06-05] MEDS ORDERED: ceFAZolin 2 GRAM PREMIX BAG IVPB SCH (15:00)
[2022-06-05] MEDS: CEFAZOLIN SODIUM 2 GM in DEXTROSE 5%-WATER 100 ML IVPB SCH (18:09)
[2022-06-05] MEDS: PANTOPRAZOLE 40 MG TABLET PO SCH (22:15)
[2022-06-05] MEDS: MELATONIN 5 MG TABLETS PO SCH (22:15)
[2022-06-06] MEDS: CEFAZOLIN SODIUM 2 GM in DEXTROSE 5%-WATER 100 ML IVPB SCH ×3 (01:52→17:40)
[2022-06-06] MEDS ORDERED: LACTATED RINGERS SOLUTION 1,000 ML/1,000 ML INFUS.BAG IV SCH ×2 (09:00→22:00)
[2022-06-06] MEDS: PANTOPRAZOLE 40 MG TABLET PO SCH (09:12)
[2022-06-06 10:35] LABS: BASO % 0.2 % (0-2.0); EOS % 0.9 % (0-4.5); HEMATOCRIT 36.1 % (32.4-45.2); LYMPH % 29.6 % (8-40); MCH 32.3 pg (25.7-33.7); MCHC 33.3 g/dl (32.0-36.0); MEAN CELL VOLUME 96.8 fl (80-96); MEAN PLT VOLUME 8.4 fl (7.5-11.1); MONO % 6.5 % (3.8-10.2); NEUT % 62.8 % (42.8-82.8); PLATELET COUNT 233 10^3/uL (134-434); RBC 3.72 M/mm3 (3.60-5.2); RDW 12.2 % (11.6-15.6); WHITE BLOOD COUNT 8.8 K/mm3 (4.0-10.0)
[2022-06-06 11:45] LABS: BLOOD UREA NITROGEN 6.4 mg/dL (7-18)
[2022-06-06 11:46] LABS: MAGNESIUM 1.8 mg/dL (1.8-2.4)
[2022-06-06 11:48] LABS: CREATININE 0.8 mg/dL (0.55-1.3); PHOSPHOROUS 2.3 mg/dL (2.5-4.9)
[2022-06-06 11:50] LABS: BILIRUBIN,TOTAL 0.5 mg/dL (0.2-1)
[2022-06-06 11:51] LABS: CALCIUM 8.4 mg/dL (8.5-10.1)
[2022-06-06 12:00] LABS: ALBUMIN 2.9 g/dl (3.4-5.0)
[2022-06-06 15:37] VITALS: BP 135/81; PULSE 92; TEMP 98.8
== END 2022-06-06 18:56 | disposition home or self-care (01) | DRG 261 ==
LOC: JER 12:07 → JERBED 19:50 → INTOOBSV 19:50 → UNDOADMOB 19:50 → OBSVTOIN 19:50 → J5S 05-30 19:00 → JERBED 05-30 19:00 → OBSVTOIN 06-03 15:28 → JERBED 06-03 15:28 → J5S 06-03 15:28 → UNDODISIN 06-06 18:56
PROVIDERS: ADMIT Internal Medicine; ATTEND Internal Medicine
PROC: 0FPB8DZ Removal of Intraluminal Device from Hepatobiliary Duct, Via Natural or Artificial Opening Endoscopic (ICD-10-PCS; 2022-06-05)
PROC: 0FC98ZZ Extirpation of Matter from Common Bile Duct, Via Natural or Artificial Opening Endoscopic (ICD-10-PCS; principal; 2022-06-05 11:30)
DX: K80.51 Calculus of bile duct without cholangitis or cholecystitis with obstruction (principal); K26.3 Acute duodenal ulcer without hemorrhage or perforation; T85.520A Displacement of bile duct prosthesis, initial encounter; N20.0 Calculus of kidney; R07.89 Other chest pain; Y83.8 Other surgical procedures as the cause of abnormal reaction of the patient, or of later complication, without mention of misadventure at the time of the procedure
CPT/HCPCS: 0241U-QW; 36415; 71046-TC-FY; 74177-TC; 74181-TC; 76000-TC-FY; 76705-TC; 80048; 80053; 80076; 80307; 81003; 82248; 83690; 83735; 84100; 84703; 85025; 85027; 85610; 86140; 86850; 86900; 86901; 87086; 88300-TC; 93005; 93010; 93306-TC; 93351; 99285-25; Q9967